=== PATIENT | female | born 1965 | race Caucasian/White ===

== ENCOUNTER 2023-12-03 14:50 | Emergency (ER) | payer MEDICAID ==
[~2023-12-03] VITALS: Ht 160 cm; Wt 75.0 kg
[2023-12-03 14:56] VITALS: O2SAT 100
[2023-12-03 15:51] LABS: BASOPHILS % 0.6 % (0.0-2.0); EOSINOPHILS % 2.4 % (0.0-5.0); HEMATOCRIT. 37.3 % (36.0-48.0); HEMOGLOBIN. 12.8 g/dL (12.0-16.0); MEAN CORPUSCULAR HEMOGLOBIN 29.7 pg (28.0-32.0); MEAN CORPUSCULAR HGB CONC 34.5 g/dL (31.0-37.0); MEAN CORPUSCULAR VOLUME 86.2 fL (81.0-99.0); MONOCYTES % 6.5 % (2.0-8.0); NEUTROPHILS % 50.5 % (40.0-76.0); PLATELET 290 x1000/uL (130-400); RED BLOOD CELL COUNT 4.32 mill/uL (4.2-5.4); RED CELL DISTRIBUTION WIDTH 12.5 % (11.6-14.6); WHITE BLOOD COUNT 6.6 x1000/uL (4.5-11.0)
[2023-12-03 15:59] LABS: CHLORIDE 107 mEq/L (98-107); POTASSIUM 3.7 mEq/L (3.5-5.1); SODIUM 140 mEq/L (136-145)
[2023-12-03 16:00] LABS: CARBON DIOXIDE 29 mEq/L (21-32)
[2023-12-03 16:01] LABS: CALCIUM 9.8 mg/dL (8.7-10.4)
[2023-12-03 16:05] LABS: CREATININE 0.6 mg/dL (0.6-1.0); GLUCOSE 89 mg/dL (70-105)
[2023-12-03 16:06] LABS: UREA NITROGEN BLOOD 9 mg/dL (9-23)
[2023-12-03 16:09] LABS: INR 0.9; PROTHROMBIN TIME 9.9 sec (9.6-11.0)
[2023-12-03 16:12] LABS: TROPONIN I HIGH SENSITIVITY < 4 ng/L (3.0-34)
[2023-12-03] MEDS: METHOCARBAMOL 500MG TABLET PO ONE (16:16)
[2023-12-03] MEDS: ASPIRIN 81MG TABLET PO ONE (16:16)
[2023-12-03 17:30] LABS: TROPONIN I HIGH SENSITIVITY < 4 ng/L (3.0-34)
[2023-12-03] MEDS ORDERED: METH-653 MT (17:35)
[2023-12-03] MEDS ORDERED: IBUP-2029 MT (17:35)
[2023-12-03 17:40] VITALS: BP 130/74; PULSE 76; RESP 16; TEMP 36.55848; O2SAT 99
[2023-12-03] MEDS ORDERED: METHOCARBAMOL 750MG TABLET PO SCH (22:00)
== END 2023-12-03 17:42 | disposition home or self-care (01) ==
LOC: ER 14:50
DX: R07.89 Other chest pain (principal)
CPT/HCPCS: 80048; 83880; 85025; 85610; 36415; 84484; 71045; 93005; 99285; Z7610